=== PATIENT | male | born 1960 | race Caucasian/White ===

== ENCOUNTER 2023-09-03 15:16 | Emergency (ER) | payer OTHER, SELFPAY ==
[2023-09-03 15:21] VITALS: BP 121/72
--- NOTE | 2023-09-03 17:07 | ED.SKININJ ---
HPI-Injury
General
Chief Complaint: Skin Surface Trauma
Source: patient
Exam Limitations: none
Time Seen by Provider: 09/03/23 16:58
Travel History
Have you had any contact with someone who has COVID-19?: No
Do you have any symptoms of coronavirus? Fever > 100 degrees, chills, cough, shortness of breath, sore throat, loss of taste or smell, muscle aches, or headache?: No
History of Present Illness-Injury
Initial Injury comments:
63-year-old male presents with injury to left large toe he sustained today. He was walking on his deck and slipped and caught his toe. He notes that his toenail broke in half and his toe is uncomfortable. Vaccines up-to-date. No other complaints
at this time
Past History
Past History
ED Past Medical History: None
ED Past Surgical History: None
Social History
Living: with family
Phy Exam
Physical Exam
Physical Exam:
General: Well-appearing male no acute respiratory distress
Skin: Left large toenail broken in half transversely at the midportion of the nail. This is barely attached. The underlying nailbed is visualized not currently bleeding. The toe itself is slightly tender the base of the nail is intact
Course
Orders/Labs/Results
Orders:
Orders
09/03/23 17:06
CR Toe(s) Min 2 Vw Left Urgent
Comment:
Reason For Exam: 1st toe injury
Vital Signs
Initial and Last Documented VS:
Initial Vital Signs
Temp Pulse Resp BP Pulse Ox
98.1 F 80 20 121/72 97
09/03/23 15:21 09/03/23 15:21 09/03/23 15:21 09/03/23 15:21 09/03/23 15:21
Last Documented Vital Signs
Temp Pulse Resp BP Pulse Ox
98.1 F 80 20 121/72 97
09/03/23 15:21 09/03/23 15:21 09/03/23 15:21 09/03/23 15:21 09/03/23 15:21
MDM/Problems Addressed
Differential Diagnosis Includes:
Toenail fracture left large toe x-rays pending to evaluate for toe fracture. A digital block will be provided to remove the remaining piece of nail and to investigate the nailbed
*Critical Care Note
Total Time (30-74mins, 75-104mins- exclusive of procedures): Not Applicable
Update Note
Update Note:
Toe x-rays negative. Upon return from x-ray the patient's broken nail did fall off on its own. The nailbed was cleansed with saline and inspected. No indication for sutures. A dressing was applied. Stable for discharge
ED Attending Note
-
Portions of this chart may have been created with voice recognition software.� Occasional wrong word or��sound alike� substitutions may have occurred due to the inherent limitations of voice recognition software.
Discharge Plan
Departure
Patient Disposition: Home (Routine Discharge)
Date of Disposition: 09/03/23
Time of Disposition: 17:54
Patient with high blood pressure during this ER visit?: No
Discharge Problem:
Avulsion of nail
Instructions: Wound Care (DC)
Prescriptions:
No Action
cyclobenzaprine 10 MG tablet
10 mg PO HSPRN PRN (Reason: muscle tightness, spasms) Qty: 7 0RF
Referrals:
Florencia Pérez PA [Family Provider] -
Activity Restrictions/Additional Instructions:
Use antibacterial ointment and change dressing as needed. Return if worse otherwise follow-up with family doctor
Interventions
Interventions:
*Risk Screen - Suicide Last Done: 09/03/23 17:33
*General Assessment Last Done: 09/03/23 17:40
*Neglect/Abuse Screening Last Done: 09/03/23 17:33
ED- Fall Risk Assessment Last Done: 09/03/23 17:40
*ED COVID-19 Vaccine History Last Done: 09/03/23 17:40
ED-Skin Assessment Last Done: 09/03/23 17:41
Discharge Date and Time
Print Language: FRENCH
[2023-09-03 17:39] VITALS: BMI 35.8
== END 2023-09-03 18:53 | disposition home or self-care (01) ==
LOC: EMR 15:16
PROVIDERS: EMERGENCY PHYSICIAN Emergency Medicine; FAMILY PHYSICIAN Physician Assistant Medical
DX: S91.202A Unspecified open wound of left great toe with damage to nail, initial encounter (principal); X58.XXXA Exposure to other specified factors, initial encounter; Y92.008 Other place in unspecified non-institutional (private) residence as the place of occurrence of the external cause
CPT/HCPCS: 99283; 73660

== ENCOUNTER → 2023-09-11 11:27 | Outpatient (REF) | payer OTHER, SELFPAY | LOC: DHCBC/DCA 11:27 | PROVIDERS: ATTENDING PHYSICIAN Internal Medicine Cardiovascular Disease; FAMILY PHYSICIAN Physician Assistant Medical | DX: R79.89 Other specified abnormal findings of blood chemistry (principal) | CPT/HCPCS: 78452; 93017; A9500 ==

== ENCOUNTER → 2023-09-27 07:02 | Outpatient (REF) | payer OTHER, SELFPAY | LOC: HWRCS 07:02 | PROVIDERS: ATTENDING PHYSICIAN Internal Medicine Cardiovascular Disease; FAMILY PHYSICIAN Physician Assistant Medical | DX: R79.89 Other specified abnormal findings of blood chemistry (principal) | CPT/HCPCS: 93306 ==

== ENCOUNTER → 2024-02-27 07:46 | Outpatient (REF) | payer OTHER, SELFPAY | LOC: HWRAD 07:46 | PROVIDERS: ATTENDING PHYSICIAN Physician Assistant Medical | DX: F17.210 Nicotine dependence, cigarettes, uncomplicated (principal); R05.3 Chronic cough | CPT/HCPCS: 71046; 71271 ==